=== PATIENT | male | born 1940 | race Caucasian/White ===

== ENCOUNTER 2019-04-11 11:33 | Inpatient (IN) ==
[2019-04-11] MEDS ORDERED: ASPIRIN PO ONE (11:44)
[2019-04-11 12:23] LABS: BASO# 0.03 X1000 (0.0-0.2); BASO% 0.2 % (0.0-0.8); EOS# 0.12 X1000 (0.0-0.7); EOS% 0.9 % (0.0-10.0); HEMATOCRIT 27.7 % (42.0-52.0); HEMOGLOBIN 8.6 g/dL (14.0-18.0); IMM GRAN# 0.07 X1000 (0.0-0.04); IMM GRAN% 0.5 % (0.0-0.5); LYMPH# 2.44 X1000 (1.2-3.4); LYMPH% 17.6 % (20.5-51.1); MCH 27.7 PG (27-31); MCV 89.4 FL (81-99); MONO# 1.51 X1000 (0.11-0.59); MONO% 10.9 % (1.7-9.3); MPV 9.5 FL (7.4-10.4); NEUT# 9.71 X1000 (1.4-6.5); NEUT% 69.9 % (42.2-75.2); PLT 439 X1000 (130-400); RDW 14.1 % (11.5-14.5); WBC 13.88 X1000 (4.8-10.8)
--- NOTE | 2019-04-11 12:28 | EKG Report ---
Test Performed on : 04/11/2019 11:55:06 AM Test Reason : sob Blood Pressure : / mmHG Vent. Rate : 124 BPM Atrial Rate : 124 BPM P-R Int : 158 ms QRS Dur : 126 ms QT Int : 306 ms P-R-T Axes : 030 -24 -21 degrees QTc Int : 439 ms Sinus tachycardia. Right bundle branch block Moderate voltage criteria for LVH, may be normal variant Abnormal ECG When compared with ECG of 09-APR-2017 21:59, Criteria for Septal infarct are no longer present ST no longer elevated in Anterior leads Inverted T waves have replaced nonspecific T wave abnormality in Anterior leads Unconfirmed Result
[2019-04-11 12:30] LABS: INR 1.03; PROTIME 13.6 Seconds (11.0-16.0)
--- NOTE | 2019-04-11 12:30 | Diag Imaging Result Doc PS360 ---
EXAM: CHEST-2 VIEWS 04/11/2019 HISTORY: sob TECHNIQUE: AP and lateral chest COMMENT: There are coarse interstitial opacities bilaterally which appear to have worsened somewhat since 04/14/2017. IMPRESSION: Pulmonary fibrosis with possible worsening since 04/14/2017. Electronically signed by Azam Chanel 04/11/2019 12:28 PM
[2019-04-11 12:43] LABS: ALB/GLOB RATIO 1.1; ALBUMIN 3.4 g/dL (3.5-5.0); CALCIUM 8.1 mg/dL (8.8-10.2); CREATININE 2.2 mg/dL (0.7-1.2); TOTAL BILIRUBIN 0.28 mg/dL (0.20-1.00); TOTAL PROTEIN 6.6 g/dL (6.3-8.3)
--- NOTE | 2019-04-11 13:38 | PROVIDER DOCUMENTATION ---
This chart was entered by Jyoti Swain Scribe, acting as scribe for Myron Pineda MD. HPI-Respiratory General - General Chief Complaint: Shortness of Breath Stated Complaint: DR RAMÍREZ REF.. POSS CLOT Time Seen by Provider: 04/11/19 12:51 Source: patient Allergies/Adverse Reactions: Patient Allergies Allergy/AdvReac Type Severity Reaction Status Date / Time No Known Allergies Allergy Verified 04/09/17 21:48 Home Medications: Home Medication List Medication Instructions Recorded Confirmed Last Taken Type Atorvastatin Calcium [Lipitor] 40 mg PO QPM 04/09/17 04/11/19 Unknown History Benazepril HCl [Lotensin] 20 mg PO BID 04/09/17 04/11/19 Unknown History Fenofibrate,Micronized 134 mg PO QAM 04/09/17 04/11/19 Unknown History [Fenofibrate] Acyclovir 1 dose TOP Q4HR 04/11/19 04/11/19 Unknown History Amlodipine Besylate 10 mg PO DAILY 04/11/19 04/11/19 Unknown History Azithromycin 1 tab PO DAILY 04/11/19 04/11/19 Unknown History Indapamide 1 tab PO DAILY 04/11/19 04/11/19 Unknown History Metformin HCl [Metformin HCl ER] 2 tab PO BID 04/11/19 04/11/19 Unknown History Pantoprazole Sodium 40 mg PO DAILY PRN 04/11/19 04/11/19 Unknown History Pioglitazone HCl 1 tab PO DAILY 04/11/19 04/11/19 Unknown History Sulfamethoxazole/Trimethoprim 1 tab PO BID 04/11/19 04/11/19 Unknown History [Sulfamethoxazole-Tmp Ds Tablet] Valacyclovir HCl [Valacyclovir] 1 tab PO TID 04/11/19 04/11/19 Unknown History - History of Present Illness-Resp Nature of Presenting Problem: Patient is a 78 year old male who presents with shortness of breath. States shortness of breath has been present for 2 weeks. Reports seeing PCP and was informed he might have pneumonia or a blood clot. Denies chest pain. States he was recently diagnose with shingles. Reports he was prescribed a Zpak and Bactrim. Quality of Pain: reports: none Severity in ED: reports: mild Onset/Duration: reports: other (2 weeks) Timing: reports: still present Modifying Factors: worse with: exertion Associated Symptoms: reports: shortness of breath Similar Symptoms Previously?: Yes Recently seen or treated by another doctor?: Yes Review of Systems - Adult - REVIEW OF SYSTEMS - ADULT Constitutional: reports: no symptoms reported Eyes: reports: no symptoms reported Ears, Nose, Mouth & Throat: reports: no symptoms reported Cardiovascular: reports: no symptoms reported Respiratory: reports: see HPI, shortness of breath. denies: cough, wheezing Gastrointestinal: reports: no symptoms reported Genitourinary: reports: no symptoms reported Musculoskeletal: reports: no symptoms reported Integumentary: reports: no symptoms reported Neurological: reports: no symptoms reported Psychiatric: reports: no symptoms reported Endocrine: reports: no symptoms reported Hematologic/Lymphatic: reports: no symptoms reported Allergic/Immunologic: reports: no symptoms reported All Other Systems: Reviewed and Negative Past History - Adult - PAST MEDICAL HISTORY-ADULT Review of Records: reports: Old Records Reviewed, Nursing Assessment Review, Medications Reviewed, Social history reviewed & non-contributory. Major Childhood Illnesses: reports: denies history Cardiovascular: reports: HTN, hyperlipidemia Respiratory: reports: denies history Gastrointestinal: reports: denies history Obstetrical/Gynecological: reports: denies history Genitourinary: reports: denies history Musculoskeletal: reports: denies history Neurological: reports: denies history Psychiatric: reports: denies history Endocrine/Immune: reports: Diabetes Other Conditions: reports: denies history - PRIOR SURGERIES/PROCEDURES Surgical/Procedure History: reports: reviewed, not pertinent - IMMUNIZATION STATUS Childhood Immunizations: See Nurse Assessment Flu Vaccine: See Nurse Assessment - FAMILY HISTORY Family History: reviewed, not pertinent - SOCIAL HISTORY Smoking: denies Substance Use: denies Physical Exam-General - PHYSICAL EXAM-ADULT Initial Vital Signs Reviewed: Yes - CONSTITUTIONAL General Appearance: alert, no apparent distress. negative: lethargic - HEAD, EARS, NOSE, MOUTH & THROAT HENMT: moist mucous membranes, other (zoster like rash to posterior neck extending to scalp with purulent drainage). negative: angioedema - NECK Neck: other (zoster like rash to posterior neck extending to scalp with purulent drainage). negative: limited range of motion - RESPIRATORY Respiratory: chest non-tender, lungs clear, normal breath sounds. negative: crackles, wheezing - CARDIOVASCULAR Cardiovascular: regular rate, rhythm, no gallop. negative: systolic murmur - GASTROINTESTINAL (ABDOMEN) Abdominal Exam: normal bowel sounds, non tender, soft. negative: rigid - MUSCULOSKELETAL Extremity: normal range of motion, other (zoster like rash to right arm). negative: deformity - SKIN Integumentary: zoster-like rash (zoster like rash to posterior neck extending to scalp with purulent drainage. zoster like rash to right arm). negative: diaphoresis, ecchymosis - NEUROLOGIC Neurologic: grossly normal. negative: aphasia, facial droop - PSYCHIATRIC Psych/Mental Status: normal mood/affect, oriented x 3, anxious - HEART Score HEART Score: History: Moderately Suspicious HEART Score: ECG: Non-Specific Repolarization Disturbance/LBBB/PM HEART Score: Age: > or = 65 Years HEART Score: Risk Factors for Atherosclerotic Disease: 1 or 2 Risk Factors HEART Score: Troponin: > or = 3x Normal Limit Total HEART Score:: 7 Progress - PLAN OF CARE/RESULTS Progress/Plan/Lab Results: Vital Signs - 8 hr 04/11/19 11:39 Temperature 98.5 F Pulse Rate 120 H Respiratory Rate 18 Blood Pressure 100/61 O2 Sat by Pulse Oximetry 91 L Laboratory Results - last 24 hr 04/11/19 04/11/19 04/11/19 11:45 11:45 11:45 WBC 13.88 H RBC 3.10 L Hgb 8.6 L Hct 27.7 L MCV 89.4 MCH 27.7 MCHC 31.0 L RDW Std Deviation 14.1 Plt Count 439 H MPV 9.5 Immature Gran % (Auto) 0.5 Neut % (Auto) 69.9 Lymph % (Auto) 17.6 L [place]linger % (Auto) 10.9 H Eos % (Auto) 0.9 Baso % (Auto) 0.2 Immature Gran # (Auto) 0.07 H Neut # (Auto) 9.71 H Lymph # (Auto) 2.44 [place] # (Auto) 1.51 H Eos # (Auto) 0.12 Baso # (Auto) 0.03 PT INR PTT (Actin FS) Sodium 134 L Potassium 4.0 Chloride 96 L Carbon Dioxide 20 L Anion Gap 18 BUN 37 H Creatinine 2.2 H Estimated GFR/1.73 m2 29 BUN/Creatinine Ratio 17 Glucose 103 Calculated Osmolality 277 Calcium 8.1 L Total Bilirubin 0.28 AST 18 ALT 7 L Alkaline Phosphatase 51 Creatine Kinase 104 Troponin T High Sens Rrn-L-Zopveylpsav Pept 130 Total Protein 6.6 Albumin 3.4 L Globulin 3.2 Albumin/Globulin Ratio 1.1 Plasma Lactate 04/11/19 04/11/19 04/11/19 11:45 11:45 14:20 WBC RBC Hgb Hct MCV MCH MCHC RDW Std Deviation Plt Count MPV Immature Gran % (Auto) Neut % (Auto) Lymph % (Auto) [place] % (Auto) Eos % (Auto) Baso % (Auto) Immature Gran # (Auto) Neut # (Auto) Lymph # (Auto) [place] # (Auto) Eos # (Auto) Baso # (Auto) PT 13.6 INR 1.03 PTT (Actin FS) 35.0 Sodium Potassium Chloride Carbon Dioxide Anion Gap BUN Creatinine Estimated GFR/1.73 m2 BUN/Creatinine Ratio Glucose Calculated Osmolality Calcium Total Bilirubin AST ALT Alkaline Phosphatase Creatine Kinase Troponin T High Sens 62 H* Eqo-K-Riqwkwrmnaz Pept Total Protein Albumin Globulin Albumin/Globulin Ratio Plasma Lactate 1.1 Orders Category Date Time Status Admit - [facility] Routine AdmDCTranf 04/11/19 15:44 Active Activity - Up with Assistance ORDERED Care 04/11/19 15:44 Active Cardiac Monitoring DIRECTED Care 04/11/19 11:45 Active FSBS/Accucheck Result AC + HS Care 04/11/19 15:44 Active Intake and Output-Strict ORDERED Care 04/11/19 15:44 Active Nursing- Assist w/ IS as order ORDERED Care 04/11/19 15:44 Active Oxygen Therapy- ED Nursing DIRECTED Care 04/11/19 11:45 Active Saline Loc NOW Care 04/11/19 11:45 Active Vital Signs Order Q 4-HR ASSESS Care 04/11/19 15:44 Active Z-Document. for Tele Applied ORDERED Care 04/11/19 15:44 Active Heart Healthy Diet Diet 04/11/19 15:44 Active CHEST-2 VIEWS [RAD] Stat Exams 04/11/19 11:45 Completed CHEST-PORTABLE [RAD] Routine Exams 04/12/19 06:00 Ordered LUNG SCAN / VQ [NM] Stat Exams 04/11/19 13:37 Completed A1C HGB W EST AVG GLUCOSE [CHEM] Routine Lab 04/12/19 06:00 Ordered BLOOD CULTURE [BLDCUL] Stat Lab 04/11/19 14:20 Results CBC WITH DIFF [HEME] Routine Lab 04/12/19 06:00 Ordered CBC WITH ELECTRONIC DIFF [HEME] Stat Lab 04/11/19 11:45 Completed CK PROFILE [SP CHEM] Stat Lab 04/11/19 11:45 Completed COMPREHENSIVE METABOLIC PANEL [CHEM] Routine Lab 04/12/19 06:00 Ordered COMPREHENSIVE METABOLIC PANEL [CHEM] Stat Lab 04/11/19 11:45 Completed IMMUNOGLOBULINS SERUM [HH] Stat Lab 04/11/19 14:20 Received LACTATE, PLASMA [CHEM] Stat Lab 04/11/19 14:20 Completed MAGNESIUM [CHEM] Routine Lab 04/12/19 06:00 Ordered PRO B-NATRIURETIC PEPTIDE Stat Lab 04/11/19 11:45 Completed PRO B-NATRIURETIC PEPTIDE Stat Lab 04/11/19 15:43 Received PROTIME WITH INR [COAG] Stat Lab 04/11/19 11:45 Completed PTT [COAG] Stat Lab 04/11/19 11:45 Completed SPUTUM CULTURE WITH GRAM STAIN [RM] Routine Lab 04/11/19 15:44 Uncollected TROPONIN T HIGH SENSITIVITY Routine Lab 04/11/19 22:00 Ordered TROPONIN T HIGH SENSITIVITY Stat Lab 04/11/19 11:45 Completed TROPONIN T HIGH SENSITIVITY Stat Lab 04/11/19 15:43 Received Acetaminophen [Tylenol] Med 04/11/19 15:44 Active 650 mg PO Q6H PRN PRN Acyclovir 5% Ointment [Zovirax Ointment] Med 04/11/19 17:00 Active 0 gm TOP Q4HR Aspirin Med 04/11/19 11:44 Discontinued 325 mg PO NOW ONE Ondansetron [Zofran] Med 04/11/19 15:44 Active 4 mg IV Q4H PRN PRN Valacyclovir HCl [Valacyclovir] Med 04/11/19 17:00 Ordered 1 tab PO TID Incentive Spirometer Routine Oth 04/11/19 15:44 Active Oxygen Device Routine Oth 04/11/19 15:44 Active Telemetry [OM.EQ] Routine Oth 04/11/19 15:44 Active EKG [EKG] Routine Ther 04/12/19 08:00 Ordered EKG [EKG] Stat Ther 04/11/19 11:45 Draft Echo Spec/Color Doppler Routine Ther 04/11/19 15:44 Ordered Transfer/Admit Order [TRANSFER] Routine Transfer 04/11/19 14:55 Completed Result Diagrams: 04/11/19 11:45 04/11/19 11:45 - EKG 1 Time of EKG reading by physician:: 11:55 EKG Read and Signed by:: Myron Pineda EKG Interpretation (*Must complete 3 of following elements*): Abnormal Rate: 124 Rhythm: sinus tachycardia [place]: normal QRS: RBB, LVH (moderate voltage criteria, may be normal variant) [place] Interval: normal Comments: abnormal ECG - XRAY 1 XRAY Study: Chest Impression: See EMR Report ( EXAM: CHEST-2 VIEWS 04/11/2019 HISTORY: sob TECHNIQUE: AP and lateral chest COMMENT: There are coarse interstitial opacities bilaterally which appear to have worsened somewhat since 04/14/2017. IMPRESSION: Pulmonary fibrosis with possible worsening since 04/14/2017. Electronically signed by Azam Chanel 04/11/2019 12:28 PM 04/11/19 1228 Interpreting Physician: Azam Chanel MD Dictated Date/Time: 04/11/19 1227 cc: Myron Pineda MD; En Ramírez MD) - CT/MRI 1 CT Study: other (LUNG SCAN / VQ) Impression: See EMR Report (EXAM: LUNG SCAN / VQ 04/11/2019 HISTORY: r/o PE TECHNIQUE: Ventilation/perfusion lung scan, 38.9 mCi of technetium 99m DTPA aerosol and 6.1 mCi of technetium 99m MAA COMMENT: There is no evidence of ventilation/perfusion mismatch. There are no focal perfusion defects. IMPRESSION: Normal study. Electronically signed by Azam Chanel 04/11/2019 3:29 PM 04/11/19 1529 Interpreting Physician: Azam Chanel MD Dictated Date/Time: 04/11/19 1528 cc: Johana Gonzalez; En Ramírez MD) - CONSULTS/PCP/HOSPITALIST Notification #1 *Consult/PCP/Hospitalist*: KACI Olson for Hospitalist Time Discussed: 13:32 Reason/Comments: Dr. Pineda consulted with Whitney about patient Consult Disposition: Will see in ED, Admit Departure - Departure Date of Disposition Decision: 04/11/19 Time of Disposition Decision: 13:32 DIAGNOSIS: Troponin level elevated, Cellulitis, SOB (shortness of breath), Pulmonary fibrosis, Renal insufficiency, Anemia Disposition: ADMITTED INPATIENT 09 Certified Medical Emergency: Emergent Condition: Fair - Critical Care Note This patient required my direct & personal management of CC.: No Attestation - Physician/ KAMI Attestation Patient care was provided by Advanced Practice Provider:: No The physician spent face to face time with patient:: Yes Advanced Practice Provider documentation review:: Supervising physician onsite and consulted in the evaluation and care of this patient. The physician did have a face to face encounter with the patient. This chart was documented by the indicated scribe, (Jyoti Swain Scribe) and accurately reflects the services I performed and decisions made by me, Myron Pineda MD, as attested by the provider's signature.
--- NOTE | 2019-04-11 15:32 | Diag Imaging Result Doc PS360 ---
EXAM: LUNG SCAN / VQ 04/11/2019 HISTORY: r/o PE TECHNIQUE: Ventilation/perfusion lung scan, 38.9 mCi of technetium 99m DTPA aerosol and 6.1 mCi of technetium 99m MAA COMMENT: There is no evidence of ventilation/perfusion mismatch. There are no focal perfusion defects. IMPRESSION: Normal study. Electronically signed by Azam Chanel 04/11/2019 3:29 PM
[2019-04-11] MEDS ORDERED: ZOFRAN IV PRN (15:44)
[2019-04-11] MEDS ORDERED: ZOVIRAX OINTMENT TOP SCH (17:00)
[2019-04-11] MEDS ORDERED: VALTREX PO SCH (17:00)
[2019-04-11] MEDS ORDERED: PROTONIX PO PRN (17:12)
[2019-04-11] MEDS ORDERED: NS 500 ML IV ONE (17:24)
[2019-04-11] MEDS ORDERED: NS 1,000 ML IV ONE (17:24)
[2019-04-11 17:25] LABS: URINE SOURCE CLEAN CATCH
[2019-04-11 17:34] LABS: BILIRUBIN URINE NEGATIVE (NEGATIVE); BLOOD URINE NEGATIVE (NEGATIVE); COLOR YELLOW; GLUCOSE URINE NEGATIVE (NEGATIVE); KETONE URINE NEGATIVE (NEGATIVE); LEUKOCYTES URINE NEGATIVE (NEGATIVE); NITRITE URINE NEGATIVE (NEGATIVE); PROTEIN URINE NEGATIVE (NEGATIVE); SP GRAVITY URINE 1.014; TURBIDITY URINE CLEAR (CLEAR); UROBILINOGEN URINE NORMAL (NORMAL)
[2019-04-11 17:35] LABS: UR EPITHELIAL CELLS <10 /HPF (<10); URINE BACTERIA NEGATIVE /HPF; URINE RBC <10 /HPF (<10); URINE WBC <10 /HPF (<10)
[2019-04-11] MEDS: ZOSYN 2.25 GM in NS 50 ML IV SCH ×2 (17:41→23:35)
[2019-04-11] MEDS: NS 1,000 ML IV SCH (18:23)
[2019-04-11] MEDS: ZYVOX 600 MG/D5W 600 MG/300 ML IVPB IV SCH (18:25)
[2019-04-11] MEDS: TYLENOL PO PRN (20:37)
[2019-04-11] MEDS: LIPITOR PO SCH (20:39)
--- NOTE | 2019-04-11 21:17 | HISTORY AND PHYSICAL ---
PRIMARY CARE PROVIDER: En Quijano MD CHIEF COMPLAINT: Multiple: Shortness of breath, chest pain, lower extremity swelling, shingles. HISTORY OF PRESENT ILLNESS: Mr. Loredo is a 78-year-old male with past medical history of diabetes mellitus, hypertension, recent diagnosis of pneumonia and shingles, who reports over the last several weeks he has been short of breath. He has only been able to 10-15 feet. He has not been able to speak in full sentences. He has had bilateral lower extremity swelling for quite some time. No appetite for over a week. Some intermittent nausea, vomiting and diarrhea over the last week. He did get shingles last week as well. He was started on acyclovir p.o. and ointment. He reports they first started on his head, then he had a spot come up on his right forearm, then they popped up on the back of his neck that appear to be infected now. He was sent here by his PCP for concern of PE and pneumonia. His chest x-ray does not show any pneumonia. We were not able to do a CT of the chest secondary to his acute kidney injury. His VQ scan is normal. He does have a white count of 13, hemoglobin and hematocrit of 8 and 27, as well as a troponin of 62. We are currently awaiting an echocardiogram, a repeat troponin and a proBNP. He denies any fever or chills. There is some debate or whether he had a productive cough or not between him and his family. He reported that the chest pain has gone across his chest. It has been intermittent over the course of the week. It will only last a few minutes, but it does improve with movement. Hard to say if it is associated with any shortness of breath because he feels like he is always short of breath. PAST MEDICAL HISTORY: 1. Diabetes mellitus. 2. Hypertension. 3. Vitamin D deficiency. 4. Folate deficiency. 5. Iron-deficiency anemia. PAST SURGICAL HISTORY: None. ALLERGIES: No known drug allergies. MEDICATIONS: Home medications are being compiled. SOCIAL HISTORY: No alcohol, tobacco or illicit drug use. and daughter at bedside. FAMILY HISTORY: No coronary disease. REVIEW OF SYSTEMS: Completely negative except for those mentioned in HPI. PHYSICAL EXAMINATION: VITAL SIGNS: Temperature is 98.5 degrees, heart rate 103, respirations 20, blood pressure 128/70, O2 saturation is 97% on room air. GENERAL: Mr. Loredo is a pleasant 78-year-old young male who is sitting up in the bed in no acute distress. HEENT: Atraumatic, normocephalic. PERRL. NECK: Supple. Trachea midline. CARDIOVASCULAR: S1, S2 appreciated. No murmurs, gallops or rubs noted. RESPIRATORY: Lung sounds clear bilaterally. GASTROINTESTINAL: Soft, nontender, nondistended. Positive bowel sounds x4 quadrants. EXTREMITIES: Lower extremities with generalized edema. SKIN: He does have what appears to be infected shingles to the back of his neck that have purulent drainage. He has old encrustation to the left side of his scalp. He does have one he has covered on his right forearm, as well as redness on his left buttock underneath the fold that appears irritated. DIAGNOSTIC DATA: VQ scan does not show any PE. Chest x-ray shows worsening pulmonary fibrosis. EKG: Sinus tachycardia with a right bundle branch block. LABORATORY DATA: White count 13, hemoglobin and hematocrit 8 and 27, platelet count 439,000. Sodium 134, potassium 4.0, BUN 37, creatinine 2.2, blood glucose is 103, calcium is 8.1. CK 104, troponin 62. ProBNP 130. Albumin is 3.4. Plasma lactate is 1.1. ASSESSMENT AND PLAN: 1. Dyspnea upon exertion. PE ruled out with VQ scan, no pneumonia on x-ray, Pro BNP normal, but does show worsening pulmonary fibrosis. 2. Worsening Pulmonary fibrosis see #1 chesk Echo to assess pulmonary hypertension. 3. Hypoxemia on arrival improved with 02. 2. Acute kidney injury secondary to dehydration. We will gently hydrate him overnight and recheck his kidney in the a.m. 3. Complaint of intermittent chest pain. He does have an elevated troponin. We will continue to check serial troponin and check echo today. 4. Sepsis rule in with infected Herpes zoster on back neck appears to have abscessed (does not follow typical pattern with the rest of sores on body). We will continue with his acyclovir and broad spectrum intravenous antibiotics ID consult and culture wound. 5. Iron-deficiency anemia, folate and vitamin D deficiency. His hemoglobin and hematocrit are lower than his last admission. We will continue to monitor. We will recheck his B12, folate and iron level. 6. Diabetes mellitus. We will place him on sliding scale with pattern blood sugars. 7. Hypertension, stable. 8. Episodes of nausea, vomiting and diarrhea reported, currently not present. We will have Zofran available. Further recommendations to follow physician evaluation, laboratory and pending diagnostic data. Dictated by KACI Pickering for Alcon Lopes MD cc: MD En Cortez MD [facility]
--- NOTE | 2019-04-11 21:49 | HISTORY AND PHYSICAL ---
ADDENDUM: The patient is seen and examined by me [id number]. The laboratory, vital signs and images were reviewed. This patient has sepsis, and it looks like he has multiple places with abscesses including his gluteal area, his neck, his arm and head. I will get a culture of this. He also has an acute kidney injury. I will place him on fluids. I have placed this patient on antibiotics, also IV fluids. As per the patient, also he has been feeling fatigued, especially when he walks. X-ray showed pulmonary fibrosis, which is probably extensive, and likely this is the cause of the problem. We have requested an echocardiogram that has been done already. Also, we have requested a V/Q scan that is basically negative. Vital signs are stable except that sometimes he is tachypneic, and he is tachycardic. He is answering all my questions. I had a conversation about his DNR status, and he decided to be DNR level 1. His was at the bedside. I will stop all the antiviral medication placed already in the chart. It does not sound to me that this patient has shingles. It looks for me that he has an abscess. Anyway, tomorrow if he is not getting better, I will ask Infectious Disease Department to evaluate this patient. I will get the immunoglobulin level as well. I agree with the rest of the nurse practitioner's assessment and plan except I do not think this is shingles, but I will keep an eye on this. I will stop the viral medication as well. cc: Alcon Lopes MD MTDD
--- NOTE | 2019-04-11 22:33 | ECHO REPORT ---
ORDER DATE: 04/11/2019 MEASUREMENTS: 1. Septal thickness 1.2. 2. Left ventricular internal diameter in diastole 3.8. 3. Posterior wall thickness 1.2. 4. Left ventricular internal diameter in systole 2.3. 5. Aortic root 3.6. 6. Left atrium 3.8. SUMMARY: 1. Adequate quality study. 2. Aortic valve is trileaflet and demonstrates moderate thickening and sclerotic changes with mildly reduced aortic valve leaflet mobility. Peak gradient across aortic valve by Doppler is 10 to 15 mmHg. Mitral, tricuspid and pulmonic valves are without evidence of structural abnormality with mild mitral regurgitation, trace tricuspid regurgitation, and mild pulmonic insufficiency. The aortic root is normal in size. 3. Normal left ventricular chamber size with mild concentric left hypertrophy is demonstrated. Estimated left ejection fraction appears to be approximately 70%. No regional wall motion abnormality is evident. Left atrium is upper normal in size. Right atrium and right ventricle normal size with normal right ventricular systolic function. 4. Right atrium and right ventricle are normal size with grossly preserved right ventricular systolic function. 5. Small posterior pericardial effusion demonstrated. 6. Inferior vena cava not well demonstrated. CONCLUSIONS: 1. Adequate quality study. 2. Moderate thickening and sclerotic change of trileaflet aortic valve without significant aortic stenosis. 3. Mild mitral regurgitation. 4. Mild concentric left hypertrophy with estimated ejection fraction approximately 70%. 5. Small posterior pericardial effusion. cc: Michael Fonseca MD
[2019-04-12] MEDS: TYLENOL PO PRN ×2 (03:02→21:44)
[2019-04-12] MEDS: ZYVOX 600 MG/D5W 600 MG/300 ML IVPB IV SCH ×2 (05:15→18:40)
[2019-04-12] MEDS: ZOSYN 2.25 GM in NS 50 ML IV SCH ×3 (05:15→18:37)
[2019-04-12 05:36] LABS: BASO# 0.03 X1000 (0.0-0.2); BASO% 0.3 % (0.0-0.8); EOS# 0.21 X1000 (0.0-0.7); EOS% 2.3 % (0.0-10.0); HEMATOCRIT 24.9 % (42.0-52.0); HEMOGLOBIN 7.6 g/dL (14.0-18.0); IMM GRAN# 0.04 X1000 (0.0-0.04); IMM GRAN% 0.4 % (0.0-0.5); LYMPH# 2.78 X1000 (1.2-3.4); LYMPH% 30.2 % (20.5-51.1); MCH 27.5 PG (27-31); MCHC 30.5 g/dL (33-37); MCV 90.2 FL (81-99); MONO% 10.8 % (1.7-9.3); MPV 9.2 FL (7.4-10.4); NEUT# 5.16 X1000 (1.4-6.5); PLT 421 X1000 (130-400); RBC 2.76 XMIL (4.7-6.1); WBC 9.22 X1000 (4.8-10.8)
[2019-04-12 05:51] LABS: HEMOGLOBIN A1C 5.6 % (4.8-6.0)
[2019-04-12 06:31] LABS: IRON SATURATION 11 %; TIBC 190 ug/dL; TOTAL IRON 21 ug/dL (53-167); UNBOUND IRON 169 ug/dL (112-346)
[2019-04-12 06:39] LABS: CALCIUM 7.8 mg/dL (8.8-10.2); CREATININE 1.6 mg/dL (0.7-1.2); POTASSIUM 3.8 mmol/L (3.5-5.1); TOTAL BILIRUBIN 0.27 mg/dL (0.20-1.00); TOTAL PROTEIN 6.1 g/dL (6.3-8.3)
[2019-04-12 07:06] LABS: MAGNESIUM 0.6 mg/dL (1.5-2.7)
--- NOTE | 2019-04-12 07:25 | Diag Imaging Result Doc PS360 ---
EXAM: CHEST-PORTABLE 04/12/2019 HISTORY: PNA TECHNIQUE: AP portable at 0610 COMMENT: There is increased interstitial opacity bilaterally particularly on the left side. This appears slightly worse than on the previous examination of 04/11/2019 definitely worse than on 04/14/2017. IMPRESSION: Pulmonary edema and/or pneumonia particularly on the left. Electronically signed by Azam Chanel 04/12/2019 7:23 AM
[2019-04-12] MEDS ORDERED: MAGNESIUM SULFATE 2 GM/S.W.I. 2 GM/50 ML IVPB IV ONE (07:29)
--- NOTE | 2019-04-12 07:43 | EKG Report ---
Test Performed on : 04/12/2019 07:22:03 AM Test Reason : chest pain Blood Pressure : / mmHG Vent. Rate : 088 BPM Atrial Rate : 088 BPM P-R Int : 182 ms QRS Dur : 138 ms QT Int : 346 ms P-R-T Axes : 035 -13 005 degrees QTc Int : 418 ms Normal sinus rhythm. Right bundle branch block Minimal voltage criteria for LVH, may be normal variant Abnormal ECG When compared with ECG of 11-APR-2019 11:55, (Unconfirmed) T wave inversion no longer evident in Anterior leads Confirmed by Altaf ZHONG, Damion Kelly ([id number]) on 04/12/2019 10:22:36 AM
[2019-04-12] MEDS ORDERED: NORVASC PO SCH (09:00)
[2019-04-12] MEDS: NS 1,000 ML IV SCH (09:07)
[2019-04-12] MEDS: TRICOR PO SCH (09:15)
--- NOTE | 2019-04-12 17:16 | PROGRESS NOTE ---
DATE: 04/12/2019 SUBJECTIVE: This patient is feeling much better today compared with yesterday. He is not complaining of chest pain. No shortness of breath. We have a positive culture that showed gram- positive cocci, so I will continue with broad-spectrum antibiotics, in this case Zyvox. I am not using vancomycin because of his acute kidney injury. His acute kidney injury is getting better. I have a previous creatinine from 01/2018, and that was normal. Continue with same management for now. OBJECTIVE: Vital Signs: Temperature 98.8 degrees, pulse 86, respiratory rate 20, blood pressure 107/63, oxygen saturation 96 on room air. HEENT: Head normocephalic, no trauma. PERRLA. Neck: Supple. No JVD. Central trachea. He has a big abscess at the level of the back of his neck. chest: Clear to auscultation. No wheezing. No rales. Abdomen: Soft, nontender, nondistended. No hepatosplenomegaly. Extremities: Trace edema. No clubbing. No cyanosis. Neurological: The patient is awake, alert. He is oriented x3. No focal deficits. Skin: He has an abscess to the back of his neck with purulent drainage. He has an old encrustation of the left side of his scalp. He has a little abscess at the level of the right forearm and redness of his left buttocks underneath the fold that appears irritated. LABORATORY: WBC 9.2, hemoglobin 7.6, hematocrit 24.9, platelets 421,000. Sodium 140, potassium 3.8, chloride 104, bicarbonate 21, BUN 25, creatinine 1.6, glucose 82, calcium 7.8, magnesium 0.6. Iron 21, albumin 3, folic acid 12.9. Vitamin B12 of 192. ASSESSMENT AND PLAN: 1. Sepsis due to multiple abscesses including neck, arm, scalp. He also has an irritation at the level of his left buttock. We will continue with the same management. He has been placed on antibiotics. His white blood cell count is getting better. We will monitor. 2. Multiple abscesses, especially at the level of the back of his neck. Aware. Continue with the same treatment. Wound Care has been consulted. 3. Hypoxemia on arrival with home oxygen. Now, he seems to be doing good on room air. We will continue with the same treatment. 4. Borderline low blood pressure. I will stop his amlodipine. We will continue to monitor, continue with IV fluids as well. 5. Anemia. It looks like the B12 is low. Iron level is low as well, but the total iron binding capacity is 190, so probably this is a chronic issue. 6. Diabetes. Continue with the same management. Hemoglobin A1c stable though at 5.6. 7. Hypomagnesemia. I will replace the magnesium which is really low at 0.6, and I will recheck that today again. 8. Hypertension. Actually, the blood pressure is borderline low, so I will stop the amlodipine and monitor. 9. Nausea, vomiting, and diarrhea. It looks like he is better. We will continue to monitor. He is tolerating p.o. His diet has been advanced to a heart healthy diet. 10. Pulmonary fibrosis. Aware. It looks like it is a little bit worse compared with 01/2018. 11. Acute kidney injury. Continue with IV fluids. This is getting better. cc: Alcon Lopes MD
[2019-04-12] MEDS: VITAMIN B-12 SL SCH (18:37)
[2019-04-12] MEDS: LIPITOR PO SCH (21:35)
[2019-04-13] MEDS: ZOSYN 2.25 GM in NS 50 ML IV SCH ×5 (00:27→23:10)
[2019-04-13] MEDS: ZYVOX 600 MG/D5W 600 MG/300 ML IVPB IV SCH ×2 (04:45→18:24)
[2019-04-13] MEDS: TYLENOL PO PRN ×2 (04:46→20:33)
[2019-04-13] MEDS: NS 1,000 ML IV SCH (04:50)
[2019-04-13 06:02] LABS: BASO# 0.03 X1000 (0.0-0.2); BASO% 0.5 % (0.0-0.8); EOS# 0.19 X1000 (0.0-0.7); EOS% 2.9 % (0.0-10.0); HEMOGLOBIN 7.9 g/dL (14.0-18.0); IMM GRAN# 0.02 X1000 (0.0-0.04); IMM GRAN% 0.3 % (0.0-0.5); LYMPH% 40.6 % (20.5-51.1); MCH 27.4 PG (27-31); MCHC 30.4 g/dL (33-37); MCV 90.3 FL (81-99); MONO# 0.65 X1000 (0.11-0.59); MONO% 9.8 % (1.7-9.3); MPV 8.9 FL (7.4-10.4); NEUT# 3.06 X1000 (1.4-6.5); NEUT% 45.9 % (42.2-75.2); PLT 458 X1000 (130-400); RBC 2.88 XMIL (4.7-6.1); RDW 13.9 % (11.5-14.5); WBC 6.65 X1000 (4.8-10.8)
[2019-04-13 06:30] LABS: CALCIUM 8.2 mg/dL (8.8-10.2); CREATININE 1.2 mg/dL (0.7-1.2); MAGNESIUM 1.1 mg/dL (1.5-2.7); PHOSPHORUS 2.8 mg/dL (2.7-4.5); POTASSIUM 3.7 mmol/L (3.5-5.1)
[2019-04-13] MEDS ORDERED: MAGNESIUM SULFATE 2 GM/S.W.I. 2 GM/50 ML IVPB IV ONE (07:20)
[2019-04-13] MEDS: TRICOR PO SCH (10:21)
[2019-04-13] MEDS: VITAMIN B-12 SL SCH (10:21)
--- NOTE | 2019-04-13 19:39 | PROGRESS NOTE ---
DATE: 04/13/2019 SUBJECTIVE: The patient is feeling much better today compared with yesterday. His kidney function is basically resolved. His magnesium level is still low and it is being replaced in the morning. I just requested a new magnesium level and we will give him more magnesium if the magnesium is still low. He is still having a lot of pus coming out from especially the neck. Wound culture showed MRSA. He has been placed already on Zyvox and he is also on Zosyn. I will request an evaluation by Infectious Disease Department in the morning. Also, I talked to the wound care nurse and she will see the patient in the morning as well. That wound is quite irregular. He has been told that probably this is related to shingles, but I am not quite sure about it. Probably he needs to get a biopsy done once the infection is gone to rule out malignancy. OBJECTIVE: Vital Signs: Temperature 98 degrees, pulse 90, respiratory rate 27, blood pressure 139/73, oxygen saturation 100% on room air. HEENT: Head normocephalic, no trauma. PERRLA. Neck: Supple. Skin: He does have a wound that is irregular in the back of his neck that is draining pus from different parts of the lesion. He has some scars, old encrustation, of the left side of his scalp. He has a little abscess at the level of the right forearm and redness of his left buttocks with a superficial ulcer, but this one does not look infected. Abdomen: Soft. Extremities: As above. Neurological: Awake, alert, and oriented x3. No focal deficits. LABORATORY: WBC 6.6, hemoglobin 7.9, hematocrit 26, platelets 458,000. Sodium 141, potassium 3.7, chloride 103, bicarbonate 23, BUN 11, creatinine 1.2, glucose 90, calcium 8.2, magnesium 1.1. ASSESSMENT AND PLAN: 1. Sepsis, due to multiple abscesses, including neck, arm, and scalp. He also has a superficial ulcer and irritation at the level of his left buttock. We will continue with same management. Wound Care has been consulted as well as Infectious Disease Department to see this patient in the morning. Since the wound at the level of the back of the neck is kind of irregular, I would like to get a biopsy done in the near future once the infection is actually controlled. On the other hand, this patient has been told that he had shingles, but I am not quite sure about it unless this is atypical. Infectious Disease Department will see him. 2. Multiple abscesses, especially at the level of the back of his neck, as above. 3. Hypoxemia on arrival, with home oxygen. At this moment, this patient is at room air. No issues. This could be multifactorial due to anemia and pulmonary fibrosis. 4. Borderline low blood pressure. I already stopped his amlodipine. His blood pressure seems to be much better. He has been getting intravenous fluids which I will stop since his kidney function and blood pressure are recovered. White blood cell count normalized also. 5. Anemia. B12 is low as well as the iron level, but the total iron binding capacity is 190, so probably this is chronic. 6. Diabetes. Continue with same management. Stable. 7. Hypomagnesemia. I already replaced his magnesium which was really low at 0.6. Today it is 1.1. It is being replaced again. I have requested a few moments ago a new magnesium level. 8. Hypertension, stable now. Amlodipine has been on hold. 9. Nausea, vomiting, and diarrhea, better. 10. Pulmonary fibrosis. This problem can be one of the causes of shortness of breath with physical activity. He needs to follow up with Pulmonary Department as an outpatient once he is better. 11. Acute kidney injury, basically resolved. cc: Alcon Lopes MD
[2019-04-13] MEDS: LIPITOR PO SCH (20:33)
[2019-04-14] MEDS: ZOSYN 2.25 GM in NS 50 ML IV SCH (04:27)
[2019-04-14] MEDS: ZYVOX 600 MG/D5W 600 MG/300 ML IVPB IV SCH (05:02)
[2019-04-14 05:35] LABS: BASO# 0.06 X1000 (0.0-0.2); BASO% 0.8 % (0.0-0.8); EOS# 0.31 X1000 (0.0-0.7); EOS% 4.2 % (0.0-10.0); HEMATOCRIT 27.1 % (42.0-52.0); HEMOGLOBIN 8.3 g/dL (14.0-18.0); IMM GRAN# 0.03 X1000 (0.0-0.04); IMM GRAN% 0.4 % (0.0-0.5); LYMPH# 3.55 X1000 (1.2-3.4); LYMPH% 47.7 % (20.5-51.1); MCH 28.5 PG (27-31); MCHC 30.6 g/dL (33-37); MCV 93.1 FL (81-99); MONO# 0.64 X1000 (0.11-0.59); MONO% 8.6 % (1.7-9.3); MPV 9.6 FL (7.4-10.4); NEUT# 2.85 X1000 (1.4-6.5); NEUT% 38.3 % (42.2-75.2); PLT 426 X1000 (130-400); RBC 2.91 XMIL (4.7-6.1); RDW 14.1 % (11.5-14.5); WBC 7.44 X1000 (4.8-10.8)
[2019-04-14 06:14] LABS: CALCIUM 8.5 mg/dL (8.8-10.2); CREATININE 1.2 mg/dL (0.7-1.2); MAGNESIUM 1.4 mg/dL (1.5-2.7); POTASSIUM 4.7 mmol/L (3.5-5.1)
[2019-04-14 08:11] VITALS: BP 145/83
[2019-04-14] MEDS ORDERED: MAGNESIUM SULFATE 2 GM/S.W.I. 2 GM/50 ML IVPB IV ONE (08:42)
[2019-04-14] MEDS: VITAMIN B-12 SL SCH (08:46)
[2019-04-14] MEDS: TRICOR PO SCH (08:46)
[2019-04-14] MEDS ORDERED: DAKIN S 0.125% TOP SCH (09:00)
[2019-04-14] MEDS ORDERED: FLU VACCINE IM ONE (10:14)
--- NOTE | 2019-04-14 14:59 | INFECTIOUS DISEASE CONSULT REP ---
DATE: 04/14/2019 CONCLUSION: The patient has on the back of his neck a methicillin-resistant Staph aureus carbuncle. On his scalp he had some smaller areas which were abscesses also caused by methicillin- resistant Staph aureus. RECOMMENDATIONS: I have discussed with Dr. Hernandez and the patient about further treatment. We all feel that the patient including the patient and his also feel that he can go home today. He is going to be sent home on doxycycline. Some of the side effects of the antibiotic including rash, diarrhea, and avoiding sunlight because of skin photosensitivity can occur with the antibiotic. The patient agrees to treatment with it. I plan on having the patient come back to my office in 1 week for follow-up to see how the lesions are doing and also rechecking a CBC and a creatinine. that she can clean the patient's neck with plain soap and water or hydrogen peroxide and then blotted dry and put a 4 x 4 on there and can do this every 12 hours and more frequently if there is a lot more drainage. DISCUSSION: The patient approximately 10 days ago, developed erythema and pustular lesions in the neck which gradually became worse with spread of the infection and there were multiple areas where pus was draining. The patient states that he also developed pustular lesions on his head. Some actually were small abscesses. The patient's studies done so far: Culture from the patient's neck and scalp grew methicillin-resistant Staph aureus. The patient's CBC shows a white count of 7440, hemoglobin 8.3, and platelet count 426,000, creatinine is 1.2. GFR is 59. Chest x-ray shows pulmonary fibrosis. PAST MEDICAL HISTORY/REVIEW OF SYSTEMS: Eyes and ears: The patient hears and sees well. Neck: See present illness. Respiratory: No cough, for shortness of breath. Cardiac: No chest pain or palpitations. GI: The patient states for the past 2 months he has had a poor appetite. He also intermittently has loose stools, which he calls diarrhea. Neurologic: No seizures. No loss of motor or sensory function. Genitourinary no dysuria or flank pain. PREVIOUS HOSPITALIZATIONS AND OPERATIONS: The patient was admitted to [facility] with a bloodstream infection. When I looked the only positive blood cultures that I could find on this patient occurred on 04/09/2017 and it was cultured from 1 blood culture and the organism is diphtheroids. Since the other blood cultures were sterile the diphtheroids it is a contaminant and not a true bacteremia. MEDICAL DISEASES: The patient has diabetes mellitus, hypertension, and anemia. Also at one time his cholesterol was elevated. INFECTIOUS DISEASE HISTORY: Positive for pneumonia and influenza. As mentioned above, the patient in 2018, had 1 blood culture that grew back the grew diphtheroids. This is a contaminant and not a true infection. FAMILY HISTORY: Positive for hypertension and cancer. SOCIAL HISTORY: [place] He does not have any pets. He does not smoke cigarettes, drink alcoholic beverages or abuse drugs. PHYSICAL EXAMINATION: Vital Signs: Temperature is 97.7 degrees, pulse 81, respirations 20, blood pressure is 125/82. The patient is 5 feet 11 inches tall, weighs 178 pounds. General: This is a somewhat ill-appearing, elderly male. He is in no acute distress. Head/eyes/ears/nose/throat: He can hear my spoken words and see near objects. On his head there are some crusted lesions on his scalp, which the patient and say were small abscesses. Neck: The patient on the posterior part of his neck has an erythematous, indurated mass with small areas where pus is present. Lungs: Clear to auscultation. Cardiovascular: Regular heart rate. Abdomen: Soft and nontender. Neurologic: The patient is alert he can move his extremities. There is no tremor. Thank you for the consult. cc: Luisito Wood MD
--- NOTE | 2019-04-15 16:51 | DISCHARGE SUMMARY ---
ADMISSION DATE: 04/11/2019 DISCHARGE DATE: 04/14/2019 DISCHARGE DIAGNOSES: 1. Methicillin resistant staphylococcus aureus carbuncle on his scalp, arm and a big one on his neck. 2. Sepsis due to carbuncle. 3. Hypoxemia on arrival. 4. Borderline low blood pressure on arrival, resolved. 5. Anemia with B12 deficiency. 6. Diabetes. 7. Hypomagnesemia. 8. Hypertension. 9. Nausea, vomiting and diarrhea, resolved. 10. Pulmonary fibrosis. 11. Acute kidney injury, resolved. HOSPITAL COURSE: A 78-year-old male with a past medical history of diabetes, hypertension, recent diagnosis of pneumonia and possible shingles, who reported over the last several weeks and has been short of breath. He only has been able to make 10 to 15 feet. He is not able to speak a in full sentences. He had bilateral lower extremity swelling for quite some time. No appetite over a week. Some intermittent nausea, vomiting and diarrhea over the last week. Apparently, he had some kind of shingles last week as well, but they do not look like shingles for me. He was started on acyclovir p.o. and some ointment. He reported they 1st started on his head and he had a spot come up on his right forearm, then pop up on the back of his neck that appears to be infected now. He was sent to a to the emergency department by his PCP because he was concerned of pulmonary embolus and pneumonia. Chest x-ray did not show any pneumonia. He came in with acute kidney injury. V/Q scan was normal. White blood cell count was elevated. He got this carbuncle in his neck and multiple parts of the body. He was evaluated by Infectious Disease Department after getting IV fluids and antibiotics, these lesions were getting better. He has MRSA infection, that were actually sensitive to doxycycline, so this patient will be discharged today with doxycycline. Infectious Disease Department will monitor this patient as an outpatient. The wound care nurse also evaluated this patient and they gave them her recommendations. We did a V/Q scan at the beginning of the this hospitalization and did not show any PE but he has multiple x-ray that showed pulmonary fibrosis that actually were worse than before, I recommended to this patient to follow up as an outpatient with one of our pulmonologists. Also because of his anemia and B12 deficiency I want him to follow up with one of our miner helper/oncologist. They seem to understand and they agree with the treatment. At the moment of discharge, this patient was in a stable medical condition tolerating p.o. and ambulating. DISCHARGE PHYSICAL EXAMINATION: Vital Signs: Temperature 98.1 degrees, pulse 97, respiratory rate 18, blood pressure 145/83, oxygen saturation 99 on room air. HEENT: Head normocephalic. He has a scalp lesions. Neck: Supple no JVD. No masses. Central trachea. A big carbuncle on the back of his neck with some pus secretion. Chest: Clear to auscultation. No wheezing. No rales. Abdomen: Soft, nontender, nondistended. No hepatosplenomegaly. Extremities: Trace edema. No clubbing. No cyanosis. He has a little bit of lesions also on his arms. Neurological: Awake, alert. He is oriented. LABORATORY: WBC 7.4, hemoglobin 8.3, hematocrit 27.1, platelets 426,000. Sodium 137, potassium 4.7, chloride 103, bicarbonate 16, BUN 7, creatinine 1.2, glucose 77, calcium 8.5, magnesium 1.4. DISCHARGE MEDICATIONS: 1. Amlodipine 10 mg p.o. daily. 2. Lipitor 40 mg p.o. q.p.m.. 3. Benazepril 20 mg p.o. b.i.d. 4. Vitamin B12 2500 mcg sublingual daily. 5. Doxycycline 100 mg p.o. q.12 hours. 6. Fenofibrate 134 mg p.o. q.a.m. 7. Indapamide 1 tablet p.o. daily 1.25 mg tablet. 8. Metformin 2 tablets p.o. b.i.d. 500 mg/ 9. Pantoprazole 40 mg p.o. daily as needed. 10. Pioglitazone 45 mg p.o. tablet. 11. Dakin's 0.1 25% solution. They need to apply this to the wounds dailiy. FOLLOWUP: Dr. Wood in 1 week. Also, I recommended to follow up with Dr. Nascimento and Dr. Rebolledo as an outpatient. cc: Alcon Lopes MD
== END 2019-04-14 12:39 | disposition home or self-care (01) | DRG 872 ==
LOC: ED 11:33 → EDIPHOLD 15:15 → 1N 04-12 13:40
PROVIDERS: ATTEND Internal Medicine